=== PATIENT | female | born 1990 | race Caucasian/White ===

== ENCOUNTER 2017-12-31 20:16 | Emergency (ER) | payer SELFPAY ==
[2018-01-01] MEDS: HYDROCODONE/APAP (5/325) TAB PO (00:16)
== END 2018-01-01 01:40 | disposition home or self-care (01) ==
LOC: FTE 20:16
DX: R07.89 Other chest pain (principal); M25.512 Pain in left shoulder
CPT/HCPCS: 71046; 99283-25